=== PATIENT | female | born 1985 | race Caucasian/White ===

== ENCOUNTER 2017-08-01 11:24 | Emergency (ER) | payer OTHER ==
[~2017-08-01] VITALS: Ht 157.5 cm; Wt 66.7 kg
[2017-08-01 12:35] LABS: ABSOLUTE NEUTROPHILS 7.1 thou/uL (1.4-8.2); BASOPHILS 0.6 % (0.0-2.0); EOSINOPHILS 0.8 % (0.0-3.0); HEMATOCRIT 35.6 % (37.0-47.0); HEMOGLOBIN 11.9 gm/dL (12.0-15.0); LYMPHOCYTES 21.7 % (24.0-44.0); MCH 25.7 pg (26.0-34.0); MCHC 33.4 g/dL (28.0-37.0); MCV 77.2 fL (80.0-100.0); MONOCYTES 4.7 % (1.0-8.0); PLATELET COUNT 267 thou/uL (150-400); POLYS 72.2 % (36.0-66.0); RBC 4.62 mil/uL (4.20-5.00); RDW 14.3 % (10.5-14.5); WBC 9.8 thou/uL (4.0-11.0)
[2017-08-01 12:43] LABS: CALCIUM 9.2 mg/dL (8.5-10.1); CREATININE 0.8 mg/dL (0.6-1.0); POTASSIUM 3.5 mmol/L (3.5-5.1)
[2017-08-01 12:48] LABS: ALBUMIN 3.5 g/dL (3.4-5.0); TOTAL BILIRUBIN 0.3 mg/dL (<0.1-1.0); TOTAL PROTEIN 7.5 g/dL (6.4-8.2)
[2017-08-01 12:54] LABS: URINE BILIRUBIN NEGATIVE (Negative); URINE BLOOD NEGATIVE (Negative); URINE CLARITY CLEAR; URINE COLOR YELLOW; URINE GLUCOSE-RANDOM* NEGATIVE (Negative); URINE KETONES TRACE (Negative); URINE NITRITE-REFLEX NEGATIVE (Negative); URINE PROTEIN (DIPSTICK) NEGATIVE (Negative); URINE SPECIFIC GRAVITY >= 1.030 (1.005-1.035); URINE UROBILINOGEN 0.2 E.U./dl (0.2-1.0)
[2017-08-01 13:21] LABS: URINE LEUKOCYTES-REFLEX 1+ (Negative)
[2017-08-01 13:22] LABS: SQUAMOUS >10 Many /LPF (0-3)
[2017-08-01 13:23] LABS: BACTERIA-REFLEX >30 Many /HPF (None Seen); CASTS None Seen /LPF (None Seen); CRYSTALS None Seen /LPF (None Seen); URINE RBC None Seen /HPF (0-2)
[2017-08-01] MEDS ORDERED: KEFLEX500 M1 PO (14:46)
== END 2017-08-01 15:02 | disposition home or self-care (01) ==
LOC: ER 11:24
PROVIDERS: Emergency Medicine
DX: O23.41 Unspecified infection of urinary tract in pregnancy, first trimester (principal); Z3A.01 Less than 8 weeks gestation of pregnancy

== ENCOUNTER 2017-08-22 12:43 | Emergency (ER) | payer OTHER ==
[~2017-08-22] VITALS: Ht 157.5 cm; Wt 65.8 kg
[~2017-08-22 12:43] MED LIST: KEFLEX500 M1 PO
[2017-08-22 13:46] LABS: ABSOLUTE NEUTROPHILS 6.8 thou/uL (1.4-8.2); BASOPHILS 0.6 % (0.0-2.0); EOSINOPHILS 0.8 % (0.0-3.0); HEMOGLOBIN 11.3 gm/dL (12.0-15.0); LYMPHOCYTES 19.9 % (24.0-44.0); MCHC 33.2 g/dL (28.0-37.0); MCV 78.5 fL (80.0-100.0); MONOCYTES 6.8 % (1.0-8.0); PLATELET COUNT 235 thou/uL (150-400); POLYS 71.9 % (36.0-66.0); RBC 4.33 mil/uL (4.20-5.00); RDW 15.2 % (10.5-14.5); WBC 9.5 thou/uL (4.0-11.0)
[2017-08-22 13:55] LABS: CALCIUM 9.3 mg/dL (8.5-10.1); CREATININE 0.6 mg/dL (0.6-1.0); POTASSIUM 3.7 mmol/L (3.5-5.1)
[2017-08-22 14:00] LABS: ALBUMIN 3.1 g/dL (3.4-5.0); TOTAL BILIRUBIN 0.1 mg/dL (<0.1-1.0); TOTAL PROTEIN 6.9 g/dL (6.4-8.2)
[2017-08-22] MEDS ORDERED: TYLENOL325 MG PO (14:21)
== END 2017-08-22 14:40 | disposition home or self-care (01) ==
LOC: ER 12:43
PROVIDERS: Emergency Medicine
DX: O26.891 Other specified pregnancy related conditions, first trimester (principal); R51 Headache; Z3A.09 9 weeks gestation of pregnancy

== ENCOUNTER 2018-02-19 23:38 | Emergency (ER) | payer OTHER ==
[~2018-02-19] VITALS: Ht 157.5 cm; Wt 81.7 kg
[~2018-02-19 23:38] MED LIST changes: +TYLENOL325 MG PO
[2018-02-20 01:07] VITALS: BP 110/70
== END 2018-02-20 01:13 | disposition home or self-care (01) ==
LOC: ER 23:38
DX: R51 Headache (principal)

== ENCOUNTER 2018-05-13 10:36 | Emergency (ER) | payer OTHER ==
[~2018-05-13] VITALS: Ht 157.5 cm; Wt 63.5 kg
--- NOTE | ~2018-05-13 | EKG ---
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
--- NOTE | ~2018-05-13 | EKG ---
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
[2018-05-13 10:50] LABS: ABSOLUTE NEUTROPHILS 7.8 thou/uL (1.4-8.2); BASOPHILS 0.6 % (0.0-2.0); EOSINOPHILS 1.4 % (0.0-3.0); HEMATOCRIT 40.9 % (37.0-47.0); HEMOGLOBIN 13.4 gm/dL (12.0-15.0); LYMPHOCYTES 23.6 % (24.0-44.0); MCHC 32.7 g/dL (28.0-37.0); MCV 79.4 fL (80.0-100.0); MONOCYTES 6.1 % (1.0-8.0); PLATELET COUNT 269 thou/uL (150-400); POLYS 68.3 % (36.0-66.0); RBC 5.15 mil/uL (4.20-5.00); RDW 13.4 % (10.5-14.5); WBC 11.4 thou/uL (4.0-11.0)
[2018-05-13 10:58] LABS: ANION GAP 9 mmol/L (7-16); BUN 15 mg/dL (7-18); CALCIUM 9.7 mg/dL (8.5-10.1); CHLORIDE 102 mmol/L (98-107); CO2 25 mmol/L (21-32); CREATININE 0.8 mg/dL (0.6-1.0); GLUCOSE 98 mg/dL (74-106); POTASSIUM 3.9 mmol/L (3.5-5.1); SODIUM 136 mmol/L (136-145)
[2018-05-13 11:06] LABS: SGOT 24 U/L (15-37); SGPT 60 U/L (30-65); TOTAL BILIRUBIN 0.4 mg/dL (<0.1-1.0); TOTAL PROTEIN 8.5 g/dL (6.4-8.2); TROPONIN-I <0.06 ng/mL (<0.06)
[2018-05-13] MEDS ORDERED: IBUPROFEN 400400 M2 PO (13:09)
[2018-05-13 14:24] VITALS: BP 124/68
== END 2018-05-13 14:26 | disposition home or self-care (01) ==
LOC: ER 10:36
PROVIDERS: Student in an Organized Health Care Education/Training Program
DX: R09.1 Pleurisy (principal); R11.2 Nausea with vomiting, unspecified; R05 Cough